=== PATIENT | female | born 1965 | race Caucasian/White ===

== ENCOUNTER 2023-11-18 11:51 | Inpatient (IN) | payer MEDICARE, MEDICAID ==
[~2023-11-18] VITALS: Ht 165.1 cm; Wt 77.1 kg
[~2023-11-18 11:51] MED LIST: AMLO10TA80 PO; CETI-89 PO; CYCL5TAB PO; ESCI10TA PO; GABA-290 PO; GENTAMICIN SULF 40MG/ML 2ML VIAL ONE; HYDR-4009 PO; LEVO100T9 PO; LIDOCAINE HCL/EPINEPHRINE 1%-EPI 1:100,000 20 ML VIAL ONE; MELA1TAB28 PO; METH-773 PO; QUET25TA PO; THROMBIN (BOVINE) 5000 UNITS/VIAL TOP ONE; TRAM50TA3 PO
[2023-11-18 12:05] LABS: CLARITY URINE CLEAR (CLEAR); COLOR URINE YELLOW (YELLOW); GLUCOSE URINE NEGATIVE (NEGATIVE); KETONES URINE NEGATIVE (NEGATIVE); LEUKOCYTE ESTERASE URINE 2+ (NEGATIVE); NITRITE URINE NEGATIVE (NEGATIVE); OCCULT BLOOD URINE NEGATIVE (NEGATIVE); PH URINE 5.5 (4.5-8.0); PROTEIN URINE NEGATIVE (NEGATIVE); SPECIFIC GRAVITY URINE 1.017 (1.005-1.030); UROBILINOGEN URINE 0.2 E.U./dL (0.2-1.0)
[2023-11-18 12:18] LABS: BACTERIA URINE NONE SEEN; RBC URINE 0-2 /hpf (0-2); SQUAMOUS EPITHELIAL CELL URINE 2+ /lpf (RARE/1+); YEAST URINE NONE SEEN
[2023-11-18 12:20] LABS: *AMPHETAMINES SCREEN URINE NEGATIVE (NEGATIVE); *BARBITURATES SCREEN URINE NEGATIVE (NEGATIVE); *BENZODIAZEPINES SCREEN URINE NEGATIVE (NEGATIVE); *COCAINE SCREEN URINE NEGATIVE (NEGATIVE); CANNABINOID URINE SCREEN NEGATIVE (NEGATIVE); ECSTASY MDMA SCREEN URINE NEGATIVE (NEGATIVE); METHADONE URINE SCREEN NEGATIVE (NEGATIVE); OPIATES URINE SCREEN PRESUMPTIVE POSITIVE (NEGATIVE); PHENCYCLIDINE URINE SCREEN NEGATIVE (NEGATIVE)
[2023-11-18] MEDS ORDERED: PROM25TA13 PO (12:43)
[2023-11-18] MEDS ORDERED: MELA3TAB40 PO (12:43)
[2023-11-18] MEDS ORDERED: ALBU6.7H15 INH (12:50)
[2023-11-18] MEDS: LACTATED RINGERS 1,000 ML IV SCH (13:10)
[2023-11-18 13:26] VITALS: PULSE 72; RESP 16; O2SAT 94
[2023-11-18] MEDS: IPRATROPIUM/ALBUTEROL 0.5-3(2.5)MG/3ML NEB HHN NR ×2 (13:26→19:47)
[2023-11-18] MEDS ORDERED: NEOSTIGMINE METHYLSULFATE 1MG/ML 10 ML VIAL ONE (16:33)
[2023-11-18] MEDS ORDERED: PROPOFOL 200MG/20ML VIAL IV ONE (16:33)
[2023-11-18] MEDS ORDERED: ONDANSETRON HCL 4MG/2ML INJ ONE (16:33)
[2023-11-18] MEDS ORDERED: DEXAMETHASONE 4MG/ML 1ML VIAL ONE (16:33)
[2023-11-18] MEDS ORDERED: ROCURONIUM BROMIDE 10MG/ML VIAL 5ML IV ONE ×2 (16:33→17:39)
[2023-11-18] MEDS ORDERED: MIDAZOLAM HCL 2 MG/2 ML VIAL ONE ×2 (16:34→19:35)
[2023-11-18] MEDS ORDERED: FENTANYL CITRATE/PF 50MCG/ML 2ML VIAL ONE ×2 (16:34→19:35)
[2023-11-18] MEDS ORDERED: NICARDIPINE 100 MG in SODIUM CHLORIDE 0.9% 60 ML IV PRN (16:45)
[2023-11-18] MEDS ORDERED: HYDROMORPHONE HCL/PF 2MG/ML CPJ ONE (17:02)
[2023-11-18] MEDS ORDERED: GLYCOPYRROLATE 0.2 MG/ML 2ML VIAL ONE (18:53)
[2023-11-18] MEDS ORDERED: SUGAMMADEX SODIUM 200 MG/2 ML VIAL IV NR (19:15)
[2023-11-18] MEDS: LORAZEPAM 2MG/ML INJ IV NR (19:30)
[2023-11-18 19:47] VITALS: PULSE 79; RESP 13; O2SAT 99
[2023-11-18] MEDS: HYDROCODONE/ACETAMINOPHEN 7.5/325MG TABLET PO PRN (20:25)
[2023-11-18] MEDS: MORPHINE SULFATE 4 MG/ML INJ (FOR IV/IM USE) IV PRN (20:25)
[2023-11-18] MEDS: DEXAMETHASONE 4MG/ML 1ML VIAL IV SCH (20:26)
[2023-11-18] MEDS: DEXT 5%/LACTATED RINGERS 1,000 ML IV SCH (20:26)
[2023-11-18] MEDS ORDERED: NALOXONE HCL 0.4MG/ML VIAL IV PRN (20:45)
[2023-11-18] MEDS ORDERED: NALOXONE HCL 0.4MG/ML 1ML VIAL IV PRN (20:45)
[2023-11-18 21:00] VITALS: BP_SYST 122; BP_SYST 129; BP_DIAS 54; BP_DIAS 74; PULSE 100; PULSE 87; RESP 15; RESP 16; TEMP 97.7
[2023-11-18] MEDS ORDERED: LEVO75TA7 PO (21:33)
[2023-11-18] MEDS: HYDROMORPHONE HCL/PF 2MG/ML CPJ IV NR (21:57)
[2023-11-18 22:00] VITALS: BP 120/71; PULSE 97; RESP 12
[2023-11-18] MEDS ORDERED: CEFAZOLIN SODIUM 1000MG/VIAL IV SCH (22:00)
[2023-11-18] MEDS: CEFAZOLIN 1000MG PREMIX 50ML IV SCH (22:12)
[2023-11-18 23:00] VITALS: BP 126/72; PULSE 97; RESP 12
[2023-11-19] VITALS (40 sets, daily range): BP systolic 113–144; BP diastolic 42–85; PULSE 67–106; RESP 10–26; TEMP 97.5–99; O2SAT 99
[2023-11-19] MEDS: IPRATROPIUM/ALBUTEROL 0.5-3(2.5)MG/3ML NEB HHN PRN (02:10)
[2023-11-19] MEDS ORDERED: IPRATROPIUM/ALBUTEROL 0.5-3(2.5)MG/3ML NEB HHN SCH (04:00)
[2023-11-19] MEDS: LEVOTHYROXINE SODIUM 75MCG TABLET PO SCH (05:48)
[2023-11-19 05:49] LABS: HEMATOCRIT 35.9 % (36.0-48.0); HEMATOCRIT. 35.9 % (36.0-48.0); MEAN CORPUSCULAR HEMOGLOBIN 31.4 pg (28.0-32.0); MEAN CORPUSCULAR HGB CONC 33.5 g/dL (31.0-37.0); MEAN CORPUSCULAR VOLUME 93.9 fL (81.0-99.0); PLATELET 264 x1000/uL (130-400); RED BLOOD CELL COUNT 3.83 mill/uL (4.2-5.4); RED CELL DISTRIBUTION WIDTH 14.4 % (11.6-14.6); WHITE BLOOD COUNT 10.7 x1000/uL (4.5-11.0)
[2023-11-19 06:05] LABS: CHLORIDE 105 mEq/L (98-107); POTASSIUM 4.2 mEq/L (3.5-5.1); SODIUM 137 mEq/L (136-145)
[2023-11-19 06:07] LABS: CARBON DIOXIDE 25 mEq/L (21-32)
[2023-11-19 06:08] LABS: CALCIUM 9.3 mg/dL (8.7-10.4)
[2023-11-19 06:09] LABS: DIFFERENTIAL COMMENT 1
[2023-11-19 06:11] LABS: TRIGLYCERIDE 35 mg/dL (0-150)
[2023-11-19 06:12] LABS: CREATININE 0.8 mg/dL (0.6-1.0); GLUCOSE 164 mg/dL (70-105)
[2023-11-19 06:13] LABS: LDL CHOLESTEROL 103 mg/dL (5-100); T4 FREE 1.47 ng/dL (0.89-1.76); THYROID STIMULATING HORMONE 2.11 uIU/mL (0.55-4.78); UREA NITROGEN BLOOD 12 mg/dL (9-23)
[2023-11-19 06:14] LABS: ALANINE AMINOTRANSFERASE 38 IU/L (10-49); ALBUMIN 3.9 g/dL (3.2-4.8); ASPARTATE AMINOTRANSFERASE 51 IU/L (<34); CHOLESTEROL 168 mg/dL (<200)
[2023-11-19 06:15] LABS: BILIRUBIN DIRECT 0.2 mg/dL (<=3.0); BILIRUBIN TOTAL 0.5 mg/dL (0.1-1.0); HDL CHOLESTEROL 55 mg/dL (>65); PROTEIN TOTAL 6.6 g/dL (6.0-8.3)
[2023-11-19 06:21] LABS: TROPONIN I HIGH SENSITIVITY < 4 ng/L (3.0-34)
[2023-11-19] MEDS ORDERED: HYDROCODONE/ACETAMINOPHEN 10/325MG TABLET PO PRN (08:45)
[2023-11-19] MEDS: HYDROMORPHONE HCL/PF 2MG/ML CPJ IV PRN ×2 (08:49→21:57)
[2023-11-19] MEDS: HYDROCODONE/ACETAMINOPHEN 10/325MG TABLET PO PRN (10:10)
[2023-11-19] MEDS: ALBUTEROL (0.083%) 2.5MG/3ML NEB HHN SCH (10:26)
[2023-11-19 15:35] LABS: PLATELET ESTIMATE NORMAL
[2023-11-19] MEDS: OXYCODONE HCL/ACETAMINOPHEN 5/325MG TABLET PO PRN (17:41)
[2023-11-19] MEDS: MELATONIN 3MG TABLET PO SCH (21:57)
[2023-11-20] VITALS (8 sets, daily range): BP systolic 127–142; BP diastolic 66–88; PULSE 63–100; RESP 16–20; TEMP 97.5–99.7; O2SAT 98
[2023-11-20] MEDS: DIPHENHYDRAMINE 25MG CAPSULE PO PRN (13:43)
[2023-11-20] MEDS: BUDESONIDE 0.5MG/2ML NEB HHN SCH (22:31)
[2023-11-21] VITALS (7 sets, daily range): BP systolic 116–144; BP diastolic 77–93; PULSE 71–96; RESP 16–20; TEMP 96.4–99; O2SAT 95
[2023-11-21] MEDS: ONDANSETRON HCL 4MG/2ML INJ IV PRN (08:40)
[2023-11-21] MEDS: POLYETHYLENE GLYCOL 3350 (17GM) 1 DOSE PACK PO NR (10:42)
[2023-11-21] MEDS: IBUPROFEN 600MG TABLET PO PRN (10:42)
[2023-11-29] MEDS ORDERED: FERR-63 PO (15:12)
[2023-11-29] MEDS ORDERED: IBUP-2029 PO (15:12)
[2023-11-29] MEDS ORDERED: LEVO75TA7 PO (15:12)
[2023-11-29] MEDS ORDERED: SULF1TAB44 PO (15:12)
== END 2023-11-21 20:35 | DRG 471 ==
LOC: OR 11:51 → MICUNO 19:50 → 6EST 11-19 16:13
PROVIDERS: ADMIT Neurological Surgery; ATTEND Neurological Surgery
PROC: 0RG2071 Fusion of 2 or more Cervical Vertebral Joints with Autologous Tissue Substitute, Posterior Approach, Posterior Column, Open Approach (ICD-10-PCS; principal; 2023-11-18)
PROC: 00NW0ZZ Release Cervical Spinal Cord, Open Approach (ICD-10-PCS; 2023-11-18)
PROC: 0PB30ZZ Excision of Cervical Vertebra, Open Approach (ICD-10-PCS; 2023-11-18)
DX: M48.02 Spinal stenosis, cervical region (principal); G82.50 Quadriplegia, unspecified; G99.2 Myelopathy in diseases classified elsewhere; S14.109A Unspecified injury at unspecified level of cervical spinal cord, initial encounter; E03.9 Hypothyroidism, unspecified; J44.9 Chronic obstructive pulmonary disease, unspecified; I10 Essential (primary) hypertension; M54.12 Radiculopathy, cervical region; E78.00 Pure hypercholesterolemia, unspecified; G89.4 Chronic pain syndrome; F41.9 Anxiety disorder, unspecified; H26.9 Unspecified cataract; H54.62 Unqualified visual loss, left eye, normal vision right eye; R29.6 Repeated falls; Z91.81 History of falling; Z90.49 Acquired absence of other specified parts of digestive tract; Z87.891 Personal history of nicotine dependence; Z79.899 Other long term (current) drug therapy; Z86.73 Personal history of transient ischemic attack (TIA), and cerebral infarction without residual deficits; Z85.43 Personal history of malignant neoplasm of ovary; X58.XXXA Exposure to other specified factors, initial encounter; Y93.89 Activity, other specified; Y92.89 Other specified places as the place of occurrence of the external cause; Y99.8 Other external cause status
CPT/HCPCS: 36415; 72040; 72141; 76000; 80048; 80061; 80076; 80305; 81003; 83036; 84439; 84443; 84484; 85025; 85027; 86850; 86900; 88304; 88311; 93970; 94640; 97116; 97162; 97166; 97530; J0690; J1100; J1170; J1580; J2250; J2270; J2405; J2704; J2710; J3010; J3490; J7040; J7120; J7121; J7626; L0172; Q0163; A4315; C1713